=== PATIENT | male | born 1985 | race Caucasian/White ===

== ENCOUNTER 2016-06-02 20:41 | Emergency (ER) | payer SELFPAY ==
[~2016-06-02] VITALS: Ht 180.3 cm; Wt 76.8 kg
[~2016-06-02 20:41] MED LIST: ADDERALL15 MG PO; ADDERALL20 MG PO; ADDERALL30 MG PO; MOTRIN800 MG PO; NAPROSYN500 MG PO; NOHOMEMEDS; PAXIL10 MG PO; PROZAC10 MG PO; ROXICET 5-325500 ML PO; TRAMADOL HCL50 MG PO; VALIUM5 MG PO; XANAX0.5 MG PO
[2016-06-02 21:03] LABS: HEMATOCRIT 40.5 % (38.0-50.0); MCH 31.3 PG (29.0-34.0); MCHC 35.1 G/DL (30.0-36.0); MCV 89.4 FL (86-99); MEAN PLAT.VOLUME 9.8 uM^3 (9.0-12.4); PLATELET COUNT 285 K/uL (156-360); RBC DIS.WIDTH-CV 11.6 % (11.8-14.6); RBC DIS.WIDTH-SD 37.1 % (39-53); RED BLOOD COUNT 4.53 M/uL (4.00-5.50); WHITE BLOOD COUNT 11.1 K/uL (4.1-10.2)
[2016-06-02 21:11] LABS: CHLORIDE 106 mEq/L (99-109); POTASSIUM 4.2 mEq/L (3.7-5.4); SODIUM 141 mEq/L (136-147)
[2016-06-02 21:13] LABS: GLUCOSE 90 mg/dL (70-99)
[2016-06-02 21:14] LABS: ANION GAP 9 MEQ/L (2-14)
[2016-06-02 21:15] LABS: TOTAL BILIRUBIN 0.3 mg/dL (0.0-1.0)
[2016-06-02 21:17] LABS: ALKALINE PHOSPHATASE 69 IU/L (3-129); GFR ESTIMATE (CALCULATED) > 59 mL/min/
[2016-06-02 21:18] LABS: UREA NITROGEN (BUN) 10 mg/dL (9-23)
[2016-06-02 21:18] LABS: ADD MIUA? YES; BILIRUBIN NEGATIVE; BLOOD NEGATIVE; COLOR YELLOW ((YELLOW)); GLUCOSE (STRIP) NEGATIVE; KETONES NEGATIVE; LEUKOCYTES SMALL; NITRITE NEGATIVE; PROTEIN (STRIP) NEGATIVE; SPECIFIC GRAVITY 1.017 (1.000-1.030); UROBILINOGEN 0.2 MG/DL (0.2-1.0)
[2016-06-02 21:29] LABS: BACTERIA NONE SEEN; CASTS NONE SEEN /LPF; CRYSTALS NONE SEEN; EPITHELIAL CELLS RARE; MUCUS NONE SEEN; PATHOLOGICAL CAST NONE SEEN; RED BLOOD CELLS 0-5 /HPF (0-5); SMALL ROUND CELL NONE SEEN; UCUL ADDED? NO; YEAST-LIKE CELL NONE SEEN
[2016-06-02] MEDS ORDERED: TORADOL10 MG PO (22:35)
[2016-06-02 22:45] VITALS: BP 120/67
[2016-06-04 13:27] LABS: CHLAMYDIA TRACHOMATIS POSITIVE; NEISSERIA GONORRHOEAE NEGATIVE
== END 2016-06-02 22:56 | disposition home or self-care (01) ==
LOC: EME 20:41
DX: R10.31 Right lower quadrant pain (principal); R30.0 Dysuria; M54.5 Low back pain; N50.811 Right testicular pain; N50.812 Left testicular pain; F17.220 Nicotine dependence, chewing tobacco, uncomplicated
CPT/HCPCS: 74176; 80053; 81003; 85027; 87491; 87591; 99281; 99284